=== PATIENT | female | born 1935 | race Caucasian/White ===

== ENCOUNTER 2018-03-31 09:39 | Emergency (ER) | payer MEDICARE ==
[~2018-03-31] VITALS: Ht 157.5 cm; Wt 46.7 kg
[2018-03-31 09:41] VITALS: BP 129/70
== END 2018-03-31 11:18 | disposition home or self-care (01) ==
LOC: ED 09:39
DX: H11.32 Conjunctival hemorrhage, left eye (principal); I10 Essential (primary) hypertension